=== PATIENT | female | born 1955 | race Caucasian/White ===

== ENCOUNTER 2022-12-19 22:20 | Emergency (ER) | payer MEDICARE ==
[~2022-12-19] VITALS: Ht 162.6 cm; Wt 68.0 kg
[2022-12-19] MEDS ORDERED: SYNTHROID25 MCG PO (22:36)
[2022-12-19] MEDS ORDERED: COMBIPATCH 0.01 EAC1 TD (22:37)
[2022-12-19 23:24] VITALS: BP 149/67
--- NOTE | 2022-12-20 22:11 | EKG ---
[facility] [address] [facility] [place] [id number] Signed Normal sinus rhythm with sinus arrhythmia Rightward axis Borderline ECG No previous ECGs available Confirmed by Augusto Archer MD () on 12/20/2022 10:10:59 PM Electronically Signed By: AUGUSTO ARCHER MD 12/20/222210 PATIENT NAME: ROBERT SALDANA Electrocardiogram DATE OF : 55 PHYSICIAN: AUGUSTO ARCHER MD REPORT #: [id number] REPORT IS CONFIDENTIAL AND NOT TO BE RELEASED WITHOUT AUTHORIZATION
== END 2022-12-19 23:25 | disposition home or self-care (01) ==
LOC: ED 22:20
DX: R07.89 Other chest pain (principal); Z91.010 Allergy to peanuts; Z88.2 Allergy status to sulfonamides; Z79.899 Other long term (current) drug therapy
CPT/HCPCS: 36415; 71045; 80053; 83735; 83880; 84484; 85025; 85379; 85610; 93005; 93010; 99285-25

== ENCOUNTER 2024-06-22 07:32 | Emergency (ER) | payer OTHER, MEDICARE ==
[~2024-06-22] VITALS: Ht 162.6 cm; Wt 54.2 kg
[~2024-06-22 07:32] MED LIST: COMBIPATCH 0.01 EAC1 TD; SYNTHROID25 MCG PO
[2024-06-22 08:04] VITALS: BP 108/64
== END 2024-06-22 08:10 | disposition home or self-care (01) ==
LOC: ED 07:32
DX: S16.1XXA Strain of muscle, fascia and tendon at neck level, initial encounter (principal); Z91.010 Allergy to peanuts; Z88.2 Allergy status to sulfonamides; Z79.890 Hormone replacement therapy; V40.5XXA Car driver injured in collision with pedestrian or animal in traffic accident, initial encounter
CPT/HCPCS: 99284